=== PATIENT | male | born 1975 | race Two or more races ===

== ENCOUNTER 2021-10-17 16:03 | Emergency (ER) | payer OTHER ==
[~2021-10-17] VITALS: Ht 180.3 cm; Wt 158.8 kg
[2021-10-17] MEDS ORDERED: METFORMIN HCL500 M3 PO (16:21)
== END 2021-10-17 19:26 | disposition home or self-care (01) ==
LOC: ER 16:03 → EDBD 16:47 → ER 19:26
DX: B34.9 Viral infection, unspecified (principal); Z20.822 Contact with and (suspected) exposure to COVID-19

== ENCOUNTER 2023-04-24 22:10 | Emergency (ER) | payer OTHER ==
[~2023-04-24] VITALS: Ht 154.9 cm; Wt 144.7 kg
[~2023-04-24 22:10] MED LIST: METFORMIN HCL500 M3 PO
== END 2023-04-25 00:03 | disposition home or self-care (01) ==
LOC: ER 22:10
DX: R50.9 Fever, unspecified (principal); Z20.822 Contact with and (suspected) exposure to COVID-19